=== PATIENT | female | born 1955 | race Caucasian/White ===

== ENCOUNTER → 2020-02-16 | Outpatient (CLI) | payer BC | LOC: LAB.O 16:27 | PROVIDERS: ATTEND Family Medicine | DX: Z00.00 Encounter for general adult medical examination without abnormal findings (principal); I10 Essential (primary) hypertension; E78.5 Hyperlipidemia, unspecified; Z13.29 Encounter for screening for other suspected endocrine disorder ==

== ENCOUNTER → 2020-09-17 | Outpatient (CLI) | payer BC ==
--- NOTE | 2020-09-17 13:00 | RAD ---
EXAM: Chest,2 Views INDICATION: 65 years Female, DYSPNEA COMPARISON: None available FINDINGS: Two views of the chest were performed. Heart size is within normal limits. Low lung volumes. No pulmonary infiltrate or pleural effusion. No pneumothorax. The osseous structures are intact. Moderate gaseous distention of the stomach bubble beneath the left hemidiaphragm. IMPRESSION: No evidence for acute cardiopulmonary process. Electronically signed by: Adriane Kellogg MD 09/17/2020 12:58 PM [employer]GER
== END ==
LOC: YCFC.O 11:34
PROVIDERS: ATTEND Family Medicine
DX: Z20.828 Contact with and (suspected) exposure to other viral communicable diseases (principal); R06.00 Dyspnea, unspecified